=== PATIENT | male | born 1950 | race Caucasian/White ===

== ENCOUNTER → 2016-10-01 | Outpatient (CLI) | payer MEDICARE, BC | END | disposition home or self-care (01) | LOC: LABWHC1 11:14 | PROVIDERS: ATTEND Internal Medicine Endocrinology, Diabetes & Metabolism | DX: C73 Malignant neoplasm of thyroid gland (principal) | CPT/HCPCS: 36415; 84432; 84443; 86800 ==

== ENCOUNTER 2016-10-15 08:41 | Day surgery (SDC) | payer MEDICARE, BC ==
[2016-10-11 17:52] VITALS: BMI 26.0
[~2016-10-15 08:41] MED LIST: LACTATED RINGERS 1,000 ML IV SCH
[2016-10-15 09:02] VITALS: TEMP 98.5
[2016-10-15] MEDS ORDERED: LIDOCAINE 1% 20 ML VIAL (10MG/ML) FOR IV START INTRADERMA ONE (09:06)
[2016-10-15] MEDS ORDERED: LIDOCAINE 1% INJ 10MG/ML (20 ML MDV) ONE (09:12)
[2016-10-15] MEDS ORDERED: PROPOFOL 10 MG/ML 20 ML VIAL IV ONE (09:12)
--- NOTE | 2016-10-15 09:29 | P.PCN ---
Date of Procedure: 10/15/16 Procedure(s) Performed: BRIEF HISTORY: Patient is a 66-year-old pleasant white male, scheduled for an elective colonoscopy as a part of evaluation of prior history of colon polyps. His last colonoscopy was in 5 years ago and has prior history of tubular adenoma. PROCEDURE PERFORMED: Colonoscopy. PREOPERATIVE DIAGNOSIS: History of colon polyps. IV sedation per Anesthesia. PROCEDURE: After informed consent was obtained, the patient, was brought into the endoscopy unit. IV conscious sedation was administered by Anesthesia under continuous monitoring. Distal rectal examination was normal. Initially the Olympus CF-160 flexible video colonoscope was then inserted in the rectum, gradually advanced into the cecum without any difficulty. Careful examination was performed as the scope was gradually being withdrawn. Ileocecal valve and the appendiceal orifice were visualized and appeared normal. Prep was excellent. Mucosa of the cecum, ascending colon, transverse colon, descending colon, sigmoid colon, and rectum appeared normal. Retroflexion was performed in the rectum and no lesions were seen. The patient tolerated the procedure well. IMPRESSION: Normal-appearing colon from rectum to cecum with no evidence of colorectal neoplasia. RECOMMENDATIONS: Findings of this examination were discussed with the patient as well as his family. He was advised to have a repeat surveillance coloscopy in 5 years.
[2016-10-15 10:10] VITALS: BP 125/83; PULSE 70; RESP 16
== END 2016-10-15 10:24 | disposition home or self-care (01) ==
LOC: ORWHC2ENDO 08:41
PROVIDERS: ATTEND Internal Medicine Gastroenterology
DX: Z12.11 Encounter for screening for malignant neoplasm of colon (principal); Z86.010 Personal history of colon polyps; I10 Essential (primary) hypertension; Z87.891 Personal history of nicotine dependence; E07.9 Disorder of thyroid, unspecified; Z79.899 Other long term (current) drug therapy
CPT/HCPCS: J2001; J2704; G0105; 99153

== ENCOUNTER → 2017-05-03 | Outpatient (CLI) | payer MEDICARE, BC ==
[2017-05-03 18:47] LABS: Blood Urea Nitrogen 19 mg/dL (9-20); Non-African American GFR(MDRD) >60 (>60 ml/min/1.73 sqM)
--- NOTE | 2017-05-03 19:56 | CT ---
EXAMINATION TYPE: CT angio chest DATE OF EXAM: 05/03/2017 7:48 PM COMPARISON: 05/06/2016 HISTORY: Follow up scan per patient CT DLP: 823.8 mGycm Automated exposure control for dose reduction was used. CONTRAST: CTA scan of the thorax is performed with IV Contrast, patient injected with 100 mL of Omnipaque 350, pulmonary embolism protocol. There are 3-D post processed images.. FINDINGS: The lungs are clear of consolidation. There is no evidence of a pulmonary mass. There is no pleural e ffusion. There is no pericardial effusion. Heart size is normal. There is aneurysm of the ascending a bony that measures 4.9 cm. There is no sign of dissection. I see no filling defects in the pulmonary arteries. There is no mediastinal adenopathy. There are no hilar masses. There is a 4 cm simple cyst on the anterior right kidney. Bony thorax appears intact. IMPRESSION: 4.9 CM ANEURYSM OF ASCENDING AORTA. THERE IS NO CHANGE COMPARED TO OLD EXAM. NO EVIDENCE OF PULMONARY EMBOLISM. STABLE RIGHT RENAL CORTICAL CYST.
== END | disposition home or self-care (01) ==
LOC: RADCTMAIN 18:06
PROVIDERS: ATTEND Internal Medicine Interventional Cardiology
DX: I71.2 Thoracic aortic aneurysm, without rupture (principal)
CPT/HCPCS: 82565; 84520; 71275; 36415; Q9967

== ENCOUNTER 2017-09-08 08:31 | Day surgery (SDC) | payer MEDICARE, BC ==
[2017-09-06 16:10] VITALS: BMI 26.2
--- NOTE | 2017-09-07 13:57 | HP ---
HISTORY AND PHYSICAL DATE OF SERVICE: 09/08/2017 Ilir Tidwell is a 67-year-old patient seen with progressive left knee pain. We discussed treatment options. He elected to proceed with arthroscopy. Consent was obtained. Medical clearance provided by Dr. Herrera. PAST MEDICAL HISTORY: Hypertension, hypothyroidism. PAST SURGICAL HISTORY: Left knee arthroscopy. DAILY MEDICATIONS: Losartan, Synthroid. ALLERGIES: None reported. SOCIAL HISTORY: Patient denies tobacco use. PHYSICAL EVALUATION: Left knee is range of motion is 0-120 degrees. Mild effusion. Tenderness medial joint line. Tenderness lateral joint line, positive medial Ervin's. Positive lateral Ervin's. Ligaments stable. Hip rotation without pain. Distal neurovascular exam intact left knee Left knee radiographs revealed moderate tricompartmental osteoarthritis. MRI left knee revealed lateral meniscal tear, medial meniscal tear and osteoarthritis. IMPRESSION: Internal derangement, left knee with medial and lateral meniscal tears. PLAN: Left knee arthroscopy with partial meniscectomy and debridement. MMODL / IJN: [id number] /
[~2017-09-08 08:31] MED LIST changes: +DEXAMETHASONE SOD PHOSPHATE 10 MG/ML 1 ML VIAL IV ONE; +ONDANSETRON 4 MG/2 ML VIAL IVP ONE; +ceFAZolin IN SWFI 2 GM/20 ML SYRINGE IVP ONE
[2017-09-08] MEDS ORDERED: BUPIVACAINE (PF) 0.25% 30 ML VIAL INTRAARTIC ONE (09:53)
[2017-09-08] MEDS ORDERED: LIDOCAINE 1% INJ 10MG/ML (20 ML MDV) ONE (09:53)
[2017-09-08] MEDS ORDERED: fentaNYL (PF) 50 MCG/ML 2 ML AMP ONE (09:53)
[2017-09-08] MEDS ORDERED: PROPOFOL 10 MG/ML 20 ML VIAL IV ONE (09:53)
[2017-09-08] MEDS ORDERED: MIDAZOLAM 2 MG/2 ML VIAL IVP ONE (10:18)
[2017-09-08] MEDS ORDERED: fentaNYL (PF) 50 MCG/ML 2 ML AMP IVP ONE (10:18)
[2017-09-08 10:47] VITALS: TEMP 97.7
--- NOTE | 2017-09-08 10:48 | P.OP ---
Date of Procedure: 09/08/17 Preoperative Diagnosis: Internal derangement left knee Postoperative Diagnosis: 1. Tear medial and lateral meniscus left knee 2. Grade 2/3 chondromalacia medial femoral condyle left knee 3. Grade 3/4 chondromalacia lateral femoral condyle left knee 4. Grade 2/3chondromalacia patellofemoral joint left knee 5. Reactive synovitis medial and suprapatellar compartments left knee Procedure(s) Performed: 1. Tear medial and lateral meniscus left knee 2. Grade 2/3 chondromalacia medial femoral condyle left knee 3. Grade 3/4 chondromalacia lateral femoral condyle left knee 4. Grade 2/3 chondromalacia patellofemoral joint left knee 5. Reactive synovitis medial and suprapatellar compartments left knee Anesthesia: GERMANA, local Surgeon: Christian Kat Estimated Blood Loss (ml): 5 Pathology: none sent Condition: stable Disposition: PACU Indications for Procedure: 67-year-old patient seen with progressive left knee pain. After treatment options were discussed, he elected to proceed with arthroscopy. Operative Findings: See description of procedure Description of Procedure: Patient was taken to the operative suite. Patient underwent a general anesthetic by the department of anesthesia. Patient was given preoperative antibiotics. The left lower extremity was placed in a well-padded arthroscopic leg marcos. The left leg was prepped and draped in the normal sterile orthopedic fashion. A lateral parapatellar and suprapatellar incision was made. Trochars were inserted. Arthroscopy was initiated. Suprapatellar pouch revealed diffuse thick reactive synovitis. The patellofemoral joint appeared to articulate congruently. There was grade 2 chondromalacia changes of the patella with osteochondral tears and grade 3 chondromalacia of the femoral sulcus with some osteochondral tears present.. The scope was guided into the medial gutter. No loose bodies or plica were identified. The scope was then guided into the medial compartment. A medial parapatellar incision was made. Trocar inserted followed by probe. There was a radial tear posterior horn medial meniscus. There were grade 2/3 chondromalacia changes of the medial femoral condyle with osteochondral tears present. There was reactive synovitis anteriorly. I performed a partial medial meniscectomy down to stable tissue. I performed a chondroplasty of the medial femoral condyle down to stable tissue. I performed a partial synovectomy. The residual meniscus and osteochondral surface was stable. Scope and probe were then guided into the intercondylar notch. Cruciates were identified, probed and found to be stable. The scope and probe were then guided into lateral compartment. There was a complex tear involving the posterior horn and midbody lateral meniscus. There were grade 3/4 chondromalacia changes of the lateral femoral condyle with some osteochondral tears present. There were grade 4 chondromalacia changes of the tibial plateau. There was a vast areas of bony exposure of the tibial plateau as also bony exposure along the lateral femoral condyle weightbearing surface. I performed a partial lateral meniscectomy down to stable tissue. I performed a chondroplasty of the lateral femoral condyle down to stable tissue. The residual meniscus was stable as was the residual osteochondral surface. The scope was in guided back into the suprapatellar compartment. I introduced a motorized shaver into the suprapatellar compartment. I debrided some piecemeal fragments of meniscus I encountered. I performed a chondroplasty of the patella and femoral sulcus down to stable tissue. I performed a partial synovectomy. Shaver was removed. I took one more look around the entire knee, no residual debris. Instruments were now removed from the joint. The joint was infiltrated with .25% Marcaine. Steri-Strips were applied to the portal sites. Sterile dressings were applied. The patient was placed into a LUCILLE hose. No tourniquet was utilized. The patient was awakened, transferred to a bed and taken to recovery stable satisfactory condition.
[2017-09-08 10:55] VITALS: RESP 16
[2017-09-08] MEDS: HYDROmorphone 0.5 MG/0.5 ML SYRINGE IVP PRN ×2 (11:06→11:12)
[2017-09-08 12:11] VITALS: BP 132/88; PULSE 74
== END 2017-09-08 12:47 | disposition home or self-care (01) ==
LOC: OR 08:31
PROVIDERS: ATTEND Orthopaedic Surgery
DX: S83.242A Other tear of medial meniscus, current injury, left knee, initial encounter (principal); S83.282A Other tear of lateral meniscus, current injury, left knee, initial encounter; X58.XXXA Exposure to other specified factors, initial encounter; M94.262 Chondromalacia, left knee; M65.862 Other synovitis and tenosynovitis, left lower leg; I10 Essential (primary) hypertension; E78.5 Hyperlipidemia, unspecified; E03.9 Hypothyroidism, unspecified; Z85.850 Personal history of malignant neoplasm of thyroid; N40.0 Benign prostatic hyperplasia without lower urinary tract symptoms; I71.2 Thoracic aortic aneurysm, without rupture; Z87.891 Personal history of nicotine dependence; Z79.899 Other long term (current) drug therapy
CPT/HCPCS: 29880; J2250; J1100; J0690; J2001; J3010; J2704; J1170

== ENCOUNTER → 2018-04-17 | Outpatient (CLI) | payer MEDICARE, BC ==
[2018-04-17 09:22] LABS: Basophils # (A) 0.1 k/uL (0-0.2); Basophils % (A) 1 %; Eosinophils # (A) 0.1 k/uL (0-0.7); Eosinophils % (A) 2 %; HCT 45.5 % (39.0-53.0); Lymphocytes # (A) 1.8 k/uL (1.0-4.8); Lymphocytes % (A) 33 %; MCH 29.5 pg (25.0-35.0); MCV 89.3 fL (80.0-100.0); Mean Platelet Volume 7.2; Monocytes # (A) 0.4 k/uL (0-1.0); Monocytes % (A) 8 %; Neutrophils # (A) 2.9 k/uL (1.3-7.7); Neutrophils % (A) 53 %; Platelet Count 253 k/uL (150-450); RBC 5.09 m/uL (4.30-5.90); RDW 13.4 % (11.5-15.5); WBC 5.4 k/uL (3.8-10.6)
[2018-04-17 09:31] LABS: Chloride 105 mmol/L (98-107)
[2018-04-17 09:33] LABS: ALT 43 U/L (21-72); AST 30 U/L (17-59); Albumin 4.8 g/dL (3.5-5.0); Alkaline Phosphatase 78 U/L (38-126); Anion Gap 11 mmol/L; Blood Urea Nitrogen 15 mg/dL (9-20); Calcium 9.8 mg/dL (8.4-10.2); Carbon Dioxide 26 mmol/L (22-30); Cholesterol 179 mg/dL (<200); Glucose 99 mg/dL (74-99); HDL Cholesterol 28 mg/dL (40-60); LDL Cholesterol,Calculated 90 mg/dL (0-99); Sodium 142 mmol/L (137-145); Total Protein 7.4 g/dL (6.3-8.2); Triglycerides 303 mg/dL (<150)
[2018-04-17 09:47] LABS: T4, Free (Free Thyroxine) 1.81 ng/dL (0.78-2.19)
== END | disposition home or self-care (01) ==
LOC: LABWHC1 08:56
PROVIDERS: ATTEND Physician Assistant
DX: I10 Essential (primary) hypertension (principal); N40.0 Benign prostatic hyperplasia without lower urinary tract symptoms
CPT/HCPCS: 36415; 80053; 80061; 84153; 84439; 84443; 85025

== ENCOUNTER → 2018-05-04 | Outpatient (CLI) | payer MEDICARE, BC ==
[2018-05-04 10:38] LABS: Blood Urea Nitrogen 19 mg/dL (9-20)
--- NOTE | 2018-05-04 11:56 | CT ---
EXAMINATION TYPE: CT angio chest DATE OF EXAM: 05/04/2018 COMPARISON: May 03, 2017 HISTORY: aneurysm CT DLP: 406 mGycm CONTRAST: CTA thoracic aorta with 3-D reconstruction is performed and with IV Contrast, patient injected with 1 00mL mL of Isovue 370. Contrast CTA of the thoracic aorta was performed from the lung apex through the upper abdomen. 3D re construction imaging obtained at a separate workstation. CT Chest: THORACIC AORTA: Ascending thoracic aortic aneurysm is stable at 4.9 cm AP dimension versus 4.9 cm pre viously. Mild atheromatous changes seen. There is no evidence for dissection or periaortic collectio n. LUNGS: The lungs are clear and free of infiltrate or atelectasis. No pulmonary nodule or mass is det ected. No pleural effusion or CT evidence of interstitial lung disease. MEDIASTINUM: No evidence for mediastinal hematoma. The heart is not enlarged. No evidence for med iastinal mass or adenopathy. HILAR STRUCTURES: No evidence for mass. No hilar adenopathy is appreciated. OTHER: There is mild hepatic steatosis identified. IMPRESSION- 1. Ascending thoracic aortic aneurysm.
== END | disposition home or self-care (01) ==
LOC: RADCTMAIN 09:59
PROVIDERS: ATTEND Internal Medicine Interventional Cardiology
DX: I71.2 Thoracic aortic aneurysm, without rupture (principal)
CPT/HCPCS: 82565; 84520; 71275; 36415; Q9967

== ENCOUNTER → 2018-08-21 | Outpatient (CLI) | payer MEDICARE, BC | LOC: LABWHC1 08:32 | PROVIDERS: ATTEND Internal Medicine Endocrinology, Diabetes & Metabolism | DX: C73 Malignant neoplasm of thyroid gland (principal) | CPT/HCPCS: 36415; 84443 ==

== ENCOUNTER → 2018-08-24 | Outpatient (CLI) | payer MEDICARE, BC | END | disposition home or self-care (01) | LOC: LABWHC1 11:44 | PROVIDERS: ATTEND Family Medicine | DX: R53.83 Other fatigue (principal) | CPT/HCPCS: 36415; 83002; 84403 ==

== ENCOUNTER → 2019-05-05 | Outpatient (CLI) | payer MEDICARE, BC ==
[2019-05-05 16:45] LABS: African American GFR (CKD) 88.6 (60.0-200.0); Albumin 4.7 g/dL (3.80-4.90); Albumin/Globulin Ratio 2.35 (1.60-3.17); Anion Gap 10.8 mmol/L (4.00-12.00); Calcium 9.2 mg/dL (8.7-10.3); Carbon Dioxide 27.2 mmol/L (21.6-31.8); LDL Cholesterol,Calculated 79.8 mg/dL (0.0-131.0); Potassium 4.5 mmol/L (3.5-5.5); Total Bilirubin 0.9 mg/dL (0.2-1.2); Total Protein 6.7 g/dL (6.2-8.2); VLDL Calculation 52.2 mg/dL (5.00-40.00)
== END | disposition home or self-care (01) ==
LOC: LABWHC1 11:47
PROVIDERS: ATTEND Internal Medicine Interventional Cardiology
DX: C73 Malignant neoplasm of thyroid gland (principal); E78.2 Mixed hyperlipidemia
CPT/HCPCS: 36415; 80053; 80061; 84432; 84443; 86800

== ENCOUNTER → 2019-06-21 | Outpatient (CLI) | payer MEDICARE, BC ==
[2019-06-21 09:05] LABS: African American GFR (CKD) >90 (>60 ml/min/1.73 sqM); Blood Urea Nitrogen 14 mg/dL (9-20)
--- NOTE | 2019-06-21 11:25 | CT ---
EXAMINATION TYPE: CT angio chest DATE OF EXAM: 06/21/2019 COMPARISON: 05/04/2018 HISTORY: 69-year-old male Thoracic aortic aneurysm without rupture. TECHNIQUE: Contiguous axial scanning of the chest performed with IV Contrast, patient injected with 1 00 mL of Isovue 370. Coronal/sagittal MIP reconstructions performed. CT DLP: 841 mGycm Automated exposure control for dose reduction was used. FINDINGS: Heart normal size without pericardial effusion. Extensive coronary vessel calcifications are present. Initial noncontrast images of the aorta show no evidence for acute intramural hematoma. Aortic root aneurysmal at 5.0 cm, unchanged. Ascending aorta aneurysmal and 5.0 cm, unchanged. Conventional arch vessel branching anatomy. Minimal to mild atherosclerotic arch calcifications. Ectatic upper descending thoracic aorta at 3.1 cm, unchanged. Mid descending thoracic aorta ectatic at 3.0 cm. Aorta at the thoracoabdominal junction ectatic at 2.8 cm, unchanged. No evidence for aortic dissection. No thoracic lymphadenopathy. Trace bilateral gynecomastia. Dependent atelectasis posterior lungs. No consolidation or pleural effusion. Cortical cysts within the upper pole of the right kidney measuring 3.7 and 2.7 cm. Low attenuation of the parenchyma. The gallbladder is borderline hydropic at 4.0 cm wide without surrounding inflammati on. Bones: No osseous destructive process. IMPRESSION: 1. ANEURYSMAL AORTIC ROOT AND ASCENDING AORTA MEASURING UP TO 5.0 CM, UNCHANGED. ECTATIC DESCENDING T HORACIC AORTA MEASURING UP TO 3.1 CM, ALSO UNCHANGED. 2. HEPATIC STEATOSIS. 3. MILDLY HYDROPIC GALLBLADDER LIKELY RELATING TO FASTING STATE. IF RIGHT UPPER QUADRANT PAIN OR CONC SH[place] FOR EARLY ACUTE CHOLECYSTITIS, FOLLOW-UP ULTRASOUND OR HIDA SCAN.
== END | disposition home or self-care (01) ==
LOC: RADCTMAIN 08:35
PROVIDERS: ATTEND Internal Medicine Interventional Cardiology
DX: I71.2 Thoracic aortic aneurysm, without rupture (principal)
CPT/HCPCS: 82565; 84520; 71275; 36415; Q9967

== ENCOUNTER → 2020-06-26 | Outpatient (CLI) | payer MEDICARE, BC ==
[2020-06-26 12:03] LABS: African American GFR (CKD) >90 (>60 ml/min/1.73 sqM); Blood Urea Nitrogen 14 mg/dL (9-20); Non-African American GFR(CKD) >90 (>60 ml/min/1.73 sqM)
--- NOTE | 2020-06-26 14:52 | CT ---
EXAMINATION TYPE: CT angio chest DATE OF EXAM: 06/26/2020 COMPARISON: CTA chest June 21, 2019 and older studies HISTORY: follow up known ascending thoracic aneurysm CT DLP: 743.4 mGycm. Automated Exposure Control for Dose Reduction was Utilized. CONTRAST: CTA scan of the thorax is performed without and with IV Contrast, patient injected with 100 mL of Iso antoni 370, pulmonary embolism protocol. 3-D reconstructed Images are created on independent workstation and reviewed. FINDINGS: LUNGS: The lungs are predominantly clear, there is no concerning parenchymal mass or nodule identifie d. Dependent atelectasis bilateral lower lobes There is no pleural effusion or pneumothorax seen. T he tracheobronchial tree is patent. MEDIASTINUM: There is ascending aortic aneurysm measuring up to 5.0 cm in diameter at level of main p ulmonary artery image 25 series 6. No extension into arch or descending aorta. Normal 3 vessel origin from aortic arch. There are no greater than 1 cm hilar or mediastinal lymph nodes. No cardiomegaly or pericardial effusion is seen. Severe three-vessel coronary artery calcification and/or stents. OTHER: Small degree of subareolar bilateral gynecomastia is redemonstrated. Visualized liver is hypod ense consistent with diffuse fatty infiltration. Likely lobulated exophytic thin-walled cyst anterior to the upper pole right kidney redemonstrated. IMPRESSION: Stable ascending aortic aneurysm up to 5.0 cm in diameter.
== END | disposition home or self-care (01) ==
LOC: RADCTMAIN 11:12
PROVIDERS: ATTEND Internal Medicine Interventional Cardiology
DX: I71.2 Thoracic aortic aneurysm, without rupture (principal)
CPT/HCPCS: 82565; 84520; 71275; 36415; Q9967

== ENCOUNTER → 2021-03-27 | Outpatient (CLI) | payer MEDICARE, BC | END | disposition home or self-care (01) ==

== ENCOUNTER → 2022-04-29 | Outpatient (CLI) | payer MEDICARE, BC | END | disposition home or self-care (01) | LOC: LABWHC1 12:26 | PROVIDERS: ATTEND Internal Medicine Endocrinology, Diabetes & Metabolism | DX: C73 Malignant neoplasm of thyroid gland (principal) | CPT/HCPCS: 36415; 84432; 84443; 86800 ==

== ENCOUNTER → 2022-05-06 | Outpatient (CLI) | payer MEDICARE, BC ==
[2022-05-06 08:34] LABS: African American GFR (CKD) >90 (>60 ml/min/1.73 sqM); Blood Urea Nitrogen 20 mg/dL (9-20); Non-African American GFR(CKD) 81 (>60 ml/min/1.73 sqM)
--- NOTE | 2022-05-06 10:10 | CT ---
EXAMINATION TYPE: CT angio chest DATE OF EXAM: 05/06/2022 9:05 AM COMPARISON: 03/27/2021 HISTORY: Thoracic aortic aneurysm CT DLP: 763 mGycm Automated exposure control for dose reduction was used. CONTRAST: CTA scan of the thorax is performed without and with IV Contrast, patient injected with 100 mL of Iso antoni 370, pulmonary embolism protocol. . FINDINGS: Heart normal size without pericardial effusion. LAD and RCA coronary artery calcifications are presen t. Aortic root aneurysmal at 5.5 cm, unchanged. Ascending aorta aneurysmal at 5.3 cm versus 5.2 cm, previously. Proximal arch aneurysmal at 4.7 cm, unchanged. Conventional arterial surrounding anatomy. Minimal atherosclerotic arch calcifications. No evidence for aortic dissection or acute intramural hematoma. Upper descending thoracic aorta ectatic at 3.5 cm versus 3.5 cm, previously. Mid descending thoracic aorta mildly aneurysmal at 3.2 cm versus 3.1 cm, previously. Lower descending thoracic aorta is ectatic at 2.9 cm, unchanged. No thoracic lymphadenopathy by CT si ze criteria. Lungs are clear with no evidence of focal pneumonia, pleural effusion or pneumothorax. Visualized upper abdomen shows prominent lower left perinephric lymph node measuring 1.0 cm, low atte nuation of the hepatic parenchyma suggesting fatty infiltration along with thin anterior calcified gr anuloma. Simple appearing renal cyst on the right suspected Bones: No osseous destructive process. IMPRESSION: 1. Minimal increase in size of the ascending aortic aneurysm measuring measuring 5.3 x 5.2 cm. Aortic root again measures 5.5 cm and is stable. 2. Coronary artery calcifications. 3. Hepatic steatosis
== END | disposition home or self-care (01) ==
LOC: RADCTMAIN 07:52
PROVIDERS: ATTEND Internal Medicine Interventional Cardiology
DX: I71.2 Thoracic aortic aneurysm, without rupture (principal); I25.10 Atherosclerotic heart disease of native coronary artery without angina pectoris; K76.0 Fatty (change of) liver, not elsewhere classified
CPT/HCPCS: 82565; 84520; 71275; 36415; Q9967

== ENCOUNTER → 2022-06-05 | Outpatient (CLI) | payer MEDICARE, BC ==
[2022-06-05 16:04] LABS: ALT 16 U/L (10-49); AST 19 U/L (14-35); African American GFR (CKD) 98.5 (60.0-200.0); Albumin 4.6 g/dL (3.8-4.9); Alkaline Phosphatase 77 U/L (41-126); BUN/Creat Ratio 20.56 Ratio (12.00-20.00); Blood Urea Nitrogen 18.5 mg/dL (9.0-27.0); Calcium 9.5 mg/dL (8.7-10.3); Chloride 104 mmol/L (96-109); Chol/HDL Ratio 5.47 Ratio; Globulin 2.7 g/dL (1.6-3.3); Glucose 101 mg/dL (70-110); Sodium 139 mmol/L (135-145); Total Protein 7.3 g/dL (6.2-8.2)
== END | disposition home or self-care (01) ==
LOC: LABWHC1 11:03
PROVIDERS: ATTEND Internal Medicine Interventional Cardiology
DX: E78.2 Mixed hyperlipidemia (principal)
CPT/HCPCS: 36415; 80053; 80061

== ENCOUNTER → 2022-12-23 | Outpatient (CLI) | payer MEDICARE, BC ==
[2022-12-23 16:04] LABS: ALT 23 U/L (10-49); AST 19 U/L (14-35); Chol/HDL Ratio 5.38 Ratio; LDL Cholesterol,Calculated 77.9 mg/dL (0.0-131.0)
== END | disposition home or self-care (01) ==
LOC: LABWHC1 09:10
PROVIDERS: ATTEND Internal Medicine Interventional Cardiology
DX: E78.2 Mixed hyperlipidemia (principal)
CPT/HCPCS: 36415; 80061; 84450; 84460

== ENCOUNTER → 2023-04-28 | Outpatient (CLI) | payer MEDICARE, BC ==
[2023-04-28 10:35] LABS: African American GFR (CKD) >90 (>60 ml/min/1.73 sqM); Blood Urea Nitrogen 13 mg/dL (9-20); Non-African American GFR(CKD) 89 (>60 ml/min/1.73 sqM)
--- NOTE | 2023-04-28 20:33 | CT ---
EXAMINATION TYPE: CT angio chest DATE OF EXAM: 04/28/2023 COMPARISON: 05/06/2022 HISTORY: Thoracic Aortic Aneurysm, without rupture CT DLP: 815.50 mGycm, Automated exposure control for dose reduction was used. CONTRAST: Performed injected with 100 ml mL of Isovue 300. TECHNIQUE: Axial images were obtained at 5 mm thick sections. Reconstructed images are reviewed on [employer] computer in the coronal plane. FINDINGS: Portion of the thyroid visualized is normal. No suspicious lung nodules or focal infiltrates are present. No enlarged mediastinal or hilar adenopathy is evident. There is a paraesophageal lymph node measur ing 0.8 cm. Series 7 image 124. An additional lymph node measures 0.9 cm posterior to the descending thoracic aorta. No retrocaval adenopathy is identified. The ascending aorta diameter at the level of the main pulmonary artery is 5.6 cm. The main pulmonar y artery diameter at the bifurcation is 3.1 cm. Aortic root is 5.5 cm. Transverse dimension of the ao rtic arch is 3.6 cm. Thoracic descending aorta at the level of the diaphragm is 3.[address] sections are obtained through the upper abdomen. Abdomen is essentially unremarkable. IMPRESSIONS: 1. Aneurysmal dilatation of the ascending thoracic aorta measuring approximately 5.5 cm. This is comp ared to the prior study of 5.3 cm. 2. Couple of small paraesophageal lymph nodes in the lower thoracic region
== END | disposition home or self-care (01) ==
LOC: RADCTMAIN 09:38
PROVIDERS: ATTEND Internal Medicine Interventional Cardiology
DX: I71.20 Thoracic aortic aneurysm, without rupture, unspecified (principal)
CPT/HCPCS: 82565; 84520; 71275; 36415; Q9967

== ENCOUNTER → 2024-02-16 | Outpatient (CLI) | payer MEDICARE, BC ==
[2024-02-16 15:41] LABS: ALT 16 U/L (10-49); AST 17 U/L (14-35); Albumin 4.6 g/dL (3.8-4.9); Alkaline Phosphatase 77 U/L (41-126); Blood Urea Nitrogen 15.3 mg/dL (9.0-27.0); Calcium 9.4 mg/dL (8.7-10.3); Chloride 105 mmol/L (96-109); Glucose 101 mg/dL (70-110); LDL Cholesterol,Calculated 92.2 mg/dL (0.0-131.0); Potassium 4.4 mmol/L (3.5-5.5); Sodium 141 mmol/L (135-145); Total Bilirubin 0.7 mg/dL (0.3-1.2); Total Protein 6.6 g/dL (6.2-8.2)
== END | disposition home or self-care (01) ==
LOC: LABWHC1 08:35
PROVIDERS: ATTEND Internal Medicine Interventional Cardiology
DX: E78.2 Mixed hyperlipidemia (principal)
CPT/HCPCS: 36415; 80053; 80061

== ENCOUNTER → 2024-12-24 | Outpatient (CLI) | payer MEDICARE, BC ==
[2024-12-24 15:14] LABS: ALT 24 U/L (10-49); AST 23 U/L (14-35); Chol/HDL Ratio 5.63 Ratio; LDL Cholesterol,Calculated 100.3 mg/dL (0.0-131.0)
== END | disposition home or self-care (01) ==
LOC: LABWHC1 09:55
PROVIDERS: ATTEND Nurse Practitioner Adult Health
DX: E78.2 Mixed hyperlipidemia (principal)
CPT/HCPCS: 36415; 80061; 84450; 84460

== ENCOUNTER 2025-01-21 01:25 | Observation (INO) | payer OTHER, MEDICARE, BC ==
[2025-01-21 01:33] VITALS: TEMP 97.9
[2025-01-21] MEDS: SODIUM CHLORIDE 0.9% 1,000 ML IV STA (02:22)
[2025-01-21 02:24] LABS: Basophils # (A) 0.07 10*3/uL (0.00-0.10); Basophils % (A) 0.8 %; Eosinophils # (A) 0.14 10*3/uL (0.04-0.35); Eosinophils % (A) 1.7 %; HCT 39.7 % (39.6-50.0); HGB 13.7 g/dL (13.0-17.0); Lymphocytes # (A) 2.33 10*3/uL (0.90-5.00); Lymphocytes % (A) 27.9 %; MCH 30.8 pg (27.0-32.0); MCHC 34.5 g/dL (32.0-37.0); MCV 89.2 fL (80.0-97.0); Mean Platelet Volume 9.7 fL (9.5-12.2); Monocytes # (A) 0.78 10*3/uL (0.20-1.00); Monocytes % (A) 9.3 %; Neutrophils # (A) 5.01 10*3/uL (1.80-7.70); Neutrophils % (A) 60.1 %; Platelet Count 251 10*3/uL (140-440); RBC 4.45 10*6/uL (4.40-5.60); RDW 13.2 % (11.5-14.5); WBC 8.35 10*3/uL (4.50-10.00)
--- NOTE | 2025-01-21 02:29 | ED ---
Abdominal Pain HPI - General Source: patient, RN notes reviewed Mode of arrival: ambulatory Limitations: no limitations - History of Present Illness MD Complaint: abdominal pain Onset/Timin -: week(s) Location: LUQ Radiation: L flank Quality: sharp Consistency: intermittent Worsens With: movement, other (Inspiration) <Germain Coronado - Last Filed: 01/21/25 03:30> - General Source: RN notes reviewed, old records reviewed Mode of arrival: ambulatory Limitations: no limitations <Brennan Canada - Last Filed: 01/23/25 03:08> - General Chief Complaint: Abdominal Pain Stated Complaint: abd pain Time Seen by Provider: 01/21/25 01:42 - History of Present Illness Initial Comments: This is a 74-year-old male with history including TAA, AAA, thyroid CA and pericarditis presenting with for left upper abdominal pain x 3 weeks. Patient states he is experiencing associated dyspnea, dizziness and lightheadedness. States pain worsens with inhalation and movement, described as sharp (4/10). States he is unable to sleep due to the pain. Patient states he is concerned of possible recurrence of pericarditis. Patient also mentions separate left flank pain after bending down for a golf ball about 2 weeks ago, assumed to be rib pain, and that he is not as concerned about. States last chest CTA was performed in June 2024 at a different medical facility with TAA measuring about 5.2 cm at that time. Denies fever, chills, ripping/tearing sensation, chest pain, presyncope, N/V/D. (Germain Coronado) This is a 74 male to ER for evaluation of chest pain chest pain and abdominal pain history of concern for abdominal pain and presented to the ER with abdominal pain severe with concern of abdominal pain here (Brennan Canada) - Related Data Home Medications Medication Instructions Recorded Confirmed Aspirin EC [Ecotrin Low Dose] 81 mg PO DAILY 01/21/25 01/21/25 Colchicine [Colcrys] 0.6 - 1.2 mg PO DIRECTED PRN 01/21/25 01/21/25 Ezetimibe [Zetia] 10 mg PO DAILY 01/21/25 01/21/25 Levothyroxine Sodium [Synthroid] 137 mcg PO DAILY 01/21/25 01/21/25 Loratadine [Claritin] 10 mg PO DAILY 01/21/25 01/21/25 Rosuvastatin Calcium [Crestor] 20 mg PO DAILY 01/21/25 01/21/25 Previous Rx's Medication Instructions Recorded Losartan [Cozaar] 50 mg PO DAILY #0 01/21/25 Pantoprazole Sodium [Protonix] 40 mg PO AC-BRKFST #14 tab 01/21/25 atenoloL [Tenormin] 25 mg PO DAILY #0 01/21/25 Allergies Allergy/AdvReac Type Severity Reaction Status Date / Time No Known Allergies Allergy Verified 01/21/25 09:12 Review of Systems ROS Other: All systems not noted in ROS Statement are negative. <Germain Coronado - Last Filed: 01/21/25 03:30> ROS Other: All systems not noted in ROS Statement are negative. <Brennan Canada - Last Filed: 01/23/25 03:08> ROS Statement: Those systems with pertinent positive or pertinent negative responses have been documented in the HPI. Past Medical History Past Medical History: Cancer, Hypertension, Prostate Disorder, Vascular Disorder Additional Past Medical History / Comment(s): Hx colon polyps and hemorroids. BPH, "heart murmur" and aortic aneursyn. Thyroid CA, pericarditis Jun 2024 History of Any Multi-Drug Resistant Organisms: None Reported Past Surgical History: Orthopedic Surgery Additional Past Surgical History / Comment(s): Mult. colonoscopies. Thyroidectomy. Lt knee scope surg. Past Anesthesia/Blood Transfusion Reactions: No Reported Reaction Past Psychological History: No Psychological Hx Reported Smoking Status: Never smoker Past Alcohol Use History: Occasional Past Drug Use History: None Reported - Past Family History Mother Family Medical History: No Reported History Additional Family Medical History / Comment(s): Family hx unknown per pt. <Germain Coronado - Last Filed: 01/21/25 03:30> General Exam Limitations: no limitations General appearance: alert, in no apparent distress Head exam: Present: atraumatic, normocephalic, normal inspection Eye exam: Present: normal appearance, PERRL, EOMI. Absent: scleral icterus, conjunctival injection, periorbital swelling ENT exam: Present: normal exam, mucous membranes moist Neck exam: Present: normal inspection. Absent: tenderness, meningismus, lymphadenopathy Respiratory exam: Present: normal lung sounds bilaterally. Absent: respiratory distress, wheezes, rales, rhonchi, stridor, chest wall tenderness, accessory muscle use, decreased breath sounds, prolonged expiratory Cardiovascular Exam: Present: regular rate, normal rhythm, normal heart sounds. Absent: systolic murmur, diastolic murmur, rubs, gallop, clicks GI/Abdominal exam: Present: soft, tenderness (Positive LUQ tenderness when palpating deep into diaphragm without guarding), diminished bowel sounds, hypoactive bowel sounds, pulsatile mass (Mid abdominal pulsation noted with deep palpation). Absent: distended, guarding, rebound, rigid, organomegaly, mass, hernia Extremities exam: Present: normal inspection, full ROM, normal capillary refill. Absent: tenderness, pedal edema, joint swelling, calf tenderness Back exam: Present: normal inspection Neurological exam: Present: alert, oriented X3, CN II-XII intact Psychiatric exam: Present: normal affect, normal mood Skin exam: Present: warm, dry, intact, normal color. Absent: rash <Germain Coronado - Last Filed: 01/21/25 03:30> General appearance: alert, in no apparent distress Head exam: Present: atraumatic, normocephalic, normal inspection Eye exam: Present: normal appearance, PERRL, EOMI. Absent: scleral icterus, conjunctival injection, periorbital swelling ENT exam: Present: normal exam, mucous membranes moist Neck exam: Present: normal inspection. Absent: tenderness, meningismus, lymphadenopathy Respiratory exam: Present: normal lung sounds bilaterally. Absent: respiratory distress, wheezes, rales, rhonchi, stridor Cardiovascular Exam: Present: regular rate, normal rhythm, normal heart sounds. Absent: systolic murmur, diastolic murmur, rubs, gallop, clicks GI/Abdominal exam: Present: soft, normal bowel sounds. Absent: distended, tenderness, guarding, rebound, rigid Extremities exam: Present: normal inspection, full ROM, normal capillary refill. Absent: tenderness, pedal edema, joint swelling, calf tenderness Back exam: Present: normal inspection Neurological exam: Present: alert, oriented X3, CN II-XII intact Psychiatric exam: Present: normal affect, normal mood Skin exam: Present: warm, dry, intact, normal color. Absent: rash <Brennan Canada B - Last Filed: 01/23/25 03:08> Course <Brennan Canada - Last Filed: 01/23/25 03:08> Vital Signs 01/21/25 01/21/25 01/21/25 01:26 05:39 08:45 Temperature 97.9 F Pulse Rate 67 67 Respiratory 18 18 17 Rate Blood Pressure 138/84 133/83 O2 Sat by Pulse 97 Oximetry 01/21/25 10:51 Temperature Pulse Rate 72 Respiratory 16 Rate Blood Pressure 139/89 O2 Sat by Pulse 93 L Oximetry - Reevaluation(s) Reevaluation #1: Medical records reviewed (Brennan Canada) Reevaluation #2: Patient's symptoms improved (Brennan Canada) Medical Decision Making - Lab Data Result diagrams: 01/21/25 01:40 01/21/25 01:40 <Germain Coronado - Last Filed: 01/21/25 03:30> - Lab Data Result diagrams: 01/21/25 01:40 01/21/25 01:40 - EKG Data -: EKG Interpreted by Me - Radiology Data Radiology results: report reviewed (CTA chest CT abdomen pelvis ultrasound of the gallbladder negative for acute disease interpreted by me), image reviewed <Brennan Canada - Last Filed: 01/23/25 03:08> - Medical Decision Making Was pt. sent in by a medical professional or institution (Dr. PA, FUNDRAISING ASSISTANT, urgent care, hospital, or prison...) When possible be specific @ -[No] Did you speak to anyone other than the patient for history (EMS, parent, family, police, friend...)? What history was obtained from this source @ - provided a small portion of HPI Did you review nursing and triage notes (agree or disagree)? Why? @ -[I reviewed and agree with nursing and triage notes] Were old charts reviewed (outside hosp., previous admission, EMS record, old EKG, old radiological studies, urgent care reports/EKG's, prison records)? Report findings @ -[No old charts were reviewed] Differential Diagnosis (chest pain, altered mental status, abdominal pain women, abdominal pain men, vaginal bleeding, weakness, fever, dyspnea, syncope, headache, dizziness, GI bleed, back pain, seizure, CVA, palpatations, mental health, musculoskeletal)? @ -Differential Abdominal Pain Men: Appendicitis, cholecystitis, diverticulosis, ischemic bowel, pancreatitis, hepatitis, UTI, gastroenteritis, AAA, incarcerated hernia, bowel obstruction, constipation, inflammatory bowel, hepatitis, peptic ulcer disease, splenic infarction, perforated viscus, testicular torsion, this is not meant to be an all-inclusive list Differential Chest Pain: Stable Angina, Unstable Angina, STEMI, NSTEMI Aortic Dissection, Pneumothorax, Musculoskeletal, Esophageal Spasm GERD, Cholecystitis, Pancreatitis, Zoster, this is not meant to be an all-inclusive list. EKG interpreted by me (3pts min.). @ -Sinus rhythm without ST deviation or T wave inversion. Ventricular rate 63 bpm, QRS 107 ms, QTc 436 ms. X-rays interpreted by me (1pt min.). @ -[None done] CT interpreted by me (1pt min.). @ -[None done] U/S interpreted by me (1pt. min.). @ -[None done] What testing was considered but not performed or refused? (CT, X-rays, U/S, labs)? Why? @ -[None] What meds were considered but not given or refused? Why? @ -[None] Did you discuss the management of the patient with other professionals (professionals i.e. , PA, FUNDRAISING ASSISTANT, lab, RT, psych nurse, hospice social worker, farmworker field crop, teacher, project control officer, assistant case manager)? Give summary @ -[No] Was smoking cessation discussed for >3mins.? @ -[No] Was critical care preformed (if so, how long)? @ -[No] Were there social determinants of health that impacted care today? How? (Homelessness, low income, unemployed, alcoholism, drug addiction, transportation, low edu. Level, literacy, decrease access to med. care, [place] [facility], rehab)? @ -[No] Was there de-escalation of care discussed even if they declined (Discuss DNR or withdrawal of care, Hospice)? DNR status @ -[No] What co-morbidities impacted this encounter? (DM, HTN, Smoking, COPD, CAD, Cancer, CVA, ARF, Chemo, Hep., AIDS, mental health diagnosis, sleep apnea, morbid obesity)? @ -[None] Was patient admitted / discharged? Hospital course, mention meds given and route, prescriptions, significant lab abnormalities, going to OR and other pertinent info. @ -[hospital course] Undiagnosed new problem with uncertain prognosis? @ -[No] Drug Therapy requiring intensive monitoring for toxicity (Heparin, Nitro, Insulin, Cardizem)? @ -[No] Were any procedures done? @ -[No] Diagnosis/symptom? @ -[default] Acute, or Chronic, or Acute on Chronic? @ -Acute Uncomplicated (without systemic symptoms) or Complicated (systemic symptoms)? @ -Complicated Side effects of treatment? @ -[No] Exacerbation, Progression, or Severe Exacerbation? @ -[No] Poses a threat to life or bodily function? How? (Chest pain, [place], [place], pneumonia, PE, COPD, DKA, ARF, appy, cholecystitis, CVA, Diverticulitis, Homicidal, Suicidal, threat to staff... and all critical care pts) @ -[No] (Germain Coronado) 74 male will be admitted for chest pain chest pain and abdominal pain with persistent nausea (Brennan Canada) - Lab Data Lab Results 01/21/25 01/21/25 01/21/25 Range/Units 01:40 01:40 01:40 WBC 8.35 (4.50-10.00) 10*3/uL RBC 4.45 (4.40-5.60) 10*6/uL Hgb 13.7 (13.0-17.0) g/dL Hct 39.7 (39.6-50.0) % MCV 89.2 (80.0-97.0) fL MCH 30.8 (27.0-32.0) pg MCHC 34.5 (32.0-37.0) g/dL Plt Count 251 (140-440) 10*3/uL MPV 9.7 (9.5-12.2) fL Immature Gran % (Auto) 0.2 % Neutrophils % 60.1 % Lymphocytes % 27.9 % Monocytes % 9.3 % Eosinophils % 1.7 % Basophils % 0.8 % Immature Gran # 0.02 (0.00-0.04) 10*3/uL Neutrophils # 5.01 (1.80-7.70) 10*3/uL Lymphocytes # 2.33 (0.90-5.00) 10*3/uL Monocytes # 0.78 (0.20-1.00) 10*3/uL Eosinophils # 0.14 (0.04-0.35) 10*3/uL Basophils # 0.07 (0.00-0.10) 10*3/uL ESR (0-20) mm/Hr PT 11.0 (10.0-12.5) sec INR 1.0 (<1.2) APTT 25.8 (22.0-30.0) sec D-Dimer 0.82 H (<0.60) mg/L FEU Sodium 139 (137-145) mmol/L Potassium 4.2 (3.5-5.1) mmol/L Chloride 102 (98-107) mmol/L Carbon Dioxide 25 (22-30) mmol/L Anion Gap 12 mmol/L BUN 12 (9-20) mg/dL Creatinine 0.71 (0.66-1.25) mg/dL Est GFR (CKD-EPI)AfAm >90 (>60 ml/min/1.73 sqM) Est GFR (CKD-EPI)NonAf >90 (>60 ml/min/1.73 sqM) Glucose 103 H (74-99) mg/dL Plasma Lactic Acid Jack (0.7-2.0) mmol/L Calcium 9.7 (8.4-10.2) mg/dL Total Bilirubin 0.9 (0.2-1.3) mg/dL AST 28 (17-59) U/L ALT 31 (4-49) U/L Alkaline Phosphatase 76 (38-126) U/L Troponin I (0.000-0.034) ng/mL Total Protein 6.9 (6.3-8.2) g/dL Albumin 4.3 (3.5-5.0) g/dL Lipase 115 (23-300) U/L CA 19-9 Antigen (0.0-34.9) U/mL 01/21/25 01/21/25 01/21/25 Range/Units 01:40 01:40 01:40 WBC (4.50-10.00) 10*3/uL RBC (4.40-5.60) 10*6/uL Hgb (13.0-17.0) g/dL Hct (39.6-50.0) % MCV (80.0-97.0) fL MCH (27.0-32.0) pg MCHC (32.0-37.0) g/dL Plt Count (140-440) 10*3/uL MPV (9.5-12.2) fL Immature Gran % (Auto) % Neutrophils % % Lymphocytes % % Monocytes % % Eosinophils % % Basophils % % Immature Gran # (0.00-0.04) 10*3/uL Neutrophils # (1.80-7.70) 10*3/uL Lymphocytes # (0.90-5.00) 10*3/uL Monocytes # (0.20-1.00) 10*3/uL Eosinophils # (0.04-0.35) 10*3/uL Basophils # (0.00-0.10) 10*3/uL ESR (0-20) mm/Hr PT (10.0-12.5) sec INR (<1.2) APTT (22.0-30.0) sec D-Dimer (<0.60) mg/L FEU Sodium (137-145) mmol/L Potassium (3.5-5.1) mmol/L Chloride (98-107) mmol/L Carbon Dioxide (22-30) mmol/L Anion Gap mmol/L BUN (9-20) mg/dL Creatinine (0.66-1.25) mg/dL Est GFR (CKD-EPI)AfAm (>60 ml/min/1.73 sqM) Est GFR (CKD-EPI)NonAf (>60 ml/min/1.73 sqM) Glucose (74-99) mg/dL Plasma Lactic Acid Jack 0.6 L (0.7-2.0) mmol/L Calcium (8.4-10.2) mg/dL Total Bilirubin (0.2-1.3) mg/dL AST (17-59) U/L ALT (4-49) U/L Alkaline Phosphatase (38-126) U/L Troponin I <0.012 (0.000-0.034) ng/mL Total Protein (6.3-8.2) g/dL Albumin (3.5-5.0) g/dL Lipase (23-300) U/L CA 19-9 Antigen 9.1 (0.0-34.9) U/mL 01/21/25 01/21/25 Range/Units 05:23 05:28 WBC (4.50-10.00) 10*3/uL RBC (4.40-5.60) 10*6/uL Hgb (13.0-17.0) g/dL Hct (39.6-50.0) % MCV (80.0-97.0) fL MCH (27.0-32.0) pg MCHC (32.0-37.0) g/dL Plt Count (140-440) 10*3/uL MPV (9.5-12.2) fL Immature Gran % (Auto) % Neutrophils % % Lymphocytes % % Monocytes % % Eosinophils % % Basophils % % Immature Gran # (0.00-0.04) 10*3/uL Neutrophils # (1.80-7.70) 10*3/uL Lymphocytes # (0.90-5.00) 10*3/uL Monocytes # (0.20-1.00) 10*3/uL Eosinophils # (0.04-0.35) 10*3/uL Basophils # (0.00-0.10) 10*3/uL ESR 18 (0-20) mm/Hr PT (10.0-12.5) sec INR (<1.2) APTT (22.0-30.0) sec D-Dimer (<0.60) mg/L FEU Sodium (137-145) mmol/L Potassium (3.5-5.1) mmol/L Chloride (98-107) mmol/L Carbon Dioxide (22-30) mmol/L Anion Gap mmol/L BUN (9-20) mg/dL Creatinine (0.66-1.25) mg/dL Est GFR (CKD-EPI)AfAm (>60 ml/min/1.73 sqM) Est GFR (CKD-EPI)NonAf (>60 ml/min/1.73 sqM) Glucose (74-99) mg/dL Plasma Lactic Acid Jack (0.7-2.0) mmol/L Calcium (8.4-10.2) mg/dL Total Bilirubin (0.2-1.3) mg/dL AST (17-59) U/L ALT (4-49) U/L Alkaline Phosphatase (38-126) U/L Troponin I <0.012 (0.000-0.034) ng/mL Total Protein (6.3-8.2) g/dL Albumin (3.5-5.0) g/dL Lipase (23-300) U/L CA 19-9 Antigen (0.0-34.9) U/mL Disposition <Germain Coronado - Last Filed: 01/21/25 03:30> Is patient prescribed a controlled substance at d/c from ED?: No Time of Disposition: 05:00 <Brennan Canada - Last Filed: 01/23/25 03:08> Clinical Impression: Chest pain Disposition: ADMITTED IP TO THIS HOSP Condition: Fair
[2025-01-21 02:34] LABS: ALT 31 U/L (4-49); AST 28 U/L (17-59); African American GFR (CKD) >90 (>60 ml/min/1.73 sqM); Albumin 4.3 g/dL (3.5-5.0); Alkaline Phosphatase 76 U/L (38-126); Anion Gap 12 mmol/L; Blood Urea Nitrogen 12 mg/dL (9-20); Calcium 9.7 mg/dL (8.4-10.2); Carbon Dioxide 25 mmol/L (22-30); Chloride 102 mmol/L (98-107); Glucose 103 mg/dL (74-99); Lipase 115 U/L (23-300); Non-African American GFR(CKD) >90 (>60 ml/min/1.73 sqM); Potassium 4.2 mmol/L (3.5-5.1); Sodium 139 mmol/L (137-145); Total Bilirubin 0.9 mg/dL (0.2-1.3); Total Protein 6.9 g/dL (6.3-8.2)
[2025-01-21 02:42] LABS: Partial Thromboplastin Time 25.8 sec (22.0-30.0)
--- NOTE | 2025-01-21 04:24 | XR ---
EXAM: XR Chest, 2 Views CLINICAL HISTORY: ITS.REASON XR Reason: LUQ pain TECHNIQUE: Frontal and lateral views of the chest. COMPARISON: No relevant prior studies available. IMPRESSION: 1. Dilated ascending aorta. Consider cross-sectional imaging. 2. Otherwise, no acute cardiopulmonary abnormality.
[2025-01-21] MEDS ORDERED: NALOXONE 0.4 MG/ML 1 ML VIAL IV PRN (05:05)
[2025-01-21] MEDS ORDERED: MORPHINE SULFATE 4 MG/ML SYRINGE IV PRN (05:05)
[2025-01-21] MEDS ORDERED: ONDANSETRON 4 MG/2 ML VIAL IVP PRN (05:05)
--- NOTE | 2025-01-21 05:31 | CT ---
EXAM: CT Angiography Chest With Intravenous Contrast CLINICAL HISTORY: ITS.REASON CT Reason: cp TECHNIQUE: Axial computed tomographic angiography images of the chest with intravenous contrast. CTDI is 15.3 mGy and DLP is 353 mGy-cm. This CT exam was performed using one or more of the following dose reduction techniques: automated exposure control, adjustment of the mA and/or kV according to patient size, and/or use of iterative reconstruction technique. MIP reconstructed images were created and reviewed. COMPARISON: No relevant prior studies available. FINDINGS: Pulmonary arteries: No pulmonary embolism detected. Aorta: Aneurysm within the ascending aorta measuring up to 5.5 cm. Please note this is incompletely evaluated given bolus timing. Lungs: Unremarkable. No mass. No consolidation. Pleural space: Unremarkable. No significant effusion. No pneumothorax. Heart: Cardiomegaly with pericardial effusion measuring up to 7 mm. Severe coronary artery calcifications. No evidence of RV dysfunction. Bones/joints: Degenerative changes in the spine. Chronic right rib fractures. No dislocation. Soft tissues: Gynecomastia. Lymph nodes: Unremarkable. No enlarged lymph nodes. Liver: Calcified granuloma in the liver. Other findings: Mild dependent atelectatic changes. IMPRESSION: 1. No pulmonary embolism detected. 2. Aneurysm within the ascending aorta measuring up to 5.5 cm. Please note this is incompletely evaluated given bolus timing. 3. Severe coronary artery calcifications.
--- NOTE | 2025-01-21 07:06 | CT ---
EXAM: CT Abdomen and Pelvis Without Intravenous Contrast CLINICAL HISTORY: ITS.REASON CT Reason: pain TECHNIQUE: Axial computed tomography images of the abdomen and pelvis without intravenous contrast. CTDI is 8.6 mGy and DLP is 563.7 mGy-cm. This CT exam was performed using one or more of the following dose reduction techniques: automated exposure control, adjustment of the mA and/or kV according to patient size, and/or use of iterative reconstruction technique. COMPARISON: No relevant prior studies available. FINDINGS: Limitations: Limited evaluation in the absence of contrast and excretory phase. Lung bases: Unremarkable. No mass. No consolidation. Heart: Coronary artery calcifications. Cardiomegaly. ABDOMEN: Liver: Unremarkable. Gallbladder and bile ducts: Unremarkable. No calcified stones. No ductal dilation. Pancreas: Unremarkable. No ductal dilation. Spleen: Unremarkable. No splenomegaly. Adrenals: Unremarkable. No mass. Kidneys and ureters: No gross evidence of radiopaque renal calculi or signs of collecting system dilatation. Simple right renal cysts. No follow-up of these simple cysts is necessary. Stomach and bowel: No evidence of bowel obstruction. No mucosal thickening. PELVIS: Appendix: No findings to suggest acute appendicitis. Bladder: Unremarkable. No stones. Reproductive: Prostatic calcifications. ABDOMEN and PELVIS: Intraperitoneal space: Unremarkable. No free air. No significant fluid collection. Bones/joints: Degenerative changes in the spine. No acute fracture. No dislocation. Soft tissues: Bilateral inguinal hernia containing fat. Umbilical hernia containing fat. Vasculature: Infrarenal abdominal aortic aneurysm measuring up to 3.7 cm in luminal cross-sectional diameter. Lymph nodes: Unremarkable. No enlarged lymph nodes. IMPRESSION: 1. Limited evaluation in the absence of contrast and excretory phase. 2. No gross evidence of radiopaque renal calculi or signs of collecting system dilatation. 3. Infrarenal abdominal aortic aneurysm measuring up to 3.7 cm in luminal cross-sectional diameter. 4. No evidence of bowel obstruction. 5. No other acute findings. 6. Incidental findings as described.
--- NOTE | 2025-01-21 07:53 | US ---
EXAMINATION TYPE: US gallbladder DATE OF EXAM: 01/21/2025 COMPARISON: CT same day CLINICAL INDICATION: Male, 74 years old with history of pain TECHNIQUE: Grayscale and color Doppler imaging of the right upper quadrant was performed. 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 Left lobe not seen, scanned through ribs. Overall homogeneous appearance. Gallbladder: fundal region not seen Evidence for sonographic Yarbrough's sign: neg CBD: Upper limits of normal in caliber. Right Kidney: Couple upper pole cysts, largest = 4.5 x 3.7 x 3.5 cm. No hydronephrosis. IMPRESSION: 1. Mild hepatomegaly. The left liver lobe is not adequately visualized by ultrasound due to the need for intercostal scanning. 2. The fundal region of the gallbladder was obscured by bowel gas and could not be visualized. No gal lstones or other abnormality along the visualized portions. No biliary ductal dilatation. 3. Main pancreatic duct appears mildly dilated. Correlate with amylase and lipase levels. Correlate w ith CA-19-9 levels. The exact etiology is unclear at this time. Consider pancreas MRI to further eval uate versus three-month follow-up ultrasound to reassess. [facility], , 01/21/2025 7:51 AM
[2025-01-21 10:54] VITALS: BP 139/89; PULSE 72; RESP 16
--- NOTE | 2025-01-21 11:37 | CA ---
Transthoracic Echo Report Name: Ilir Tidwell Age: 74 Gender: M : 1950 Exam Date: 01/21/2025 09:42 Exam Location: [facility] Ht (in): 72 Wt (lb): 172 Ordering Physician: Brennan Canada DO Attending/Referring Phys: [id number], [employer] Operator Jovany Angeles, HAZEL Procedure CPT: Indications: CP Cardiac Hx: Aortic aneurysm, HTN, cancer Technical Quality: Good Contrast 1: Total Dose (mL): Contrast 2: Total Dose (mL): MEASUREMENTS (Male / Female) Normal Values 2D ECHO LV Diastolic Diameter PLAX 5.2 cm 4.2 - 5.9 / 3.9 - 5.3 cm LV Systolic Diameter PLAX 3.5 cm IVS Diastolic Thickness 1.2 cm 0.6 - 1.0 / 0.6 - 0.9 cm LVPW Diastolic Thickness 1.1 cm 0.6 - 1.0 / 0.6 - 0.9 cm LV Relative Wall Thickness 0.4 LVOT Diameter 2.1 cm Aortic Root Diameter 5.5 cm LA Systolic Diameter LX 3.2 cm 3.0 - 4.0 / 2.7 - 3.8 cm LV Diastolic Volume MOD 4C 116.0 cm??? LV Systolic Volume MOD 4C 53.7 cm??? LV Ejection Fraction MOD 4C 53.7 % LV Diastolic Length 4C 7.7 cm LV Systolic Length 4C 6.9 cm LV Diastolic Volume MOD 2C 125.7 cm??? LV Systolic Volume MOD 2C 56.6 cm??? LV Ejection Fraction MOD 2C 55.0 % LV Diastolic Length 2C 7.8 cm LV Systolic Length 2C 6.5 cm LA Volume 36.7 cm??? 18 - 58 / 22 - 52 cm??? LA Volume Index 18.4 cm???/m??? 16 - 28 cm???/m??? DOPPLER AI Peak Velocity 442.6 cm/s AI Peak Gradient 78.4 mmHg AI Pressure Half Time 469.8 ms MV Area PHT 3.5 cm??? Mitral E Point Velocity 85.2 cm/s Mitral A Point Velocity 72.8 cm/s Mitral E to A Ratio 1.2 MV Deceleration Time 215.8 ms TR Peak Velocity 205.5 cm/s TR Peak Gradient 16.9 mmHg Right Atrial Pressure 5.0 mmHg Pulmonary Artery Systolic Pressu 21.9 mmHg Right Ventricular Systolic Press 21.9 mmHg FINDINGS Left Ventricle Left ventricular ejection fraction is estimated at 55-60 %. Mildly increased septal wall thickness. Normal left ventricular systolic function with no obvious regional wall motion abnormalities. Right Ventricle Normal right ventricular size and function. Right ventricular systolic pressure within normal limits. Right Atrium Mild right atrial dilatation. Left Atrium Normal left atrial size. Mitral Valve Mitral annular calcification. No mitral stenosis. Mild mitral regurgitation. Aortic Valve Trileaflet aortic valve. Aortic valve sclerosis. No aortic stenosis. Moderate aortic regurgitation. Tricuspid Valve Structurally normal tricuspid valve. No tricuspid stenosis. Trace tricuspid regurgitation. Pulmonic Valve Structurally normal pulmonic valve. No pulmonic stenos. Trace pulmonic regurgitation. Pericardium No pericardial effusion. Aorta Severe aortic dilatation at the level of the sinuses of valsalva (root). Severely dilated proximal ascending aorta (tube). CONCLUSIONS Normal LV size and systolic function. Mild biatrial enlargement, enlarged aortic root at 5.5 cm. Aortic valve appears to be trileaflet but not very well-seen. Moderate aortic regurgitation. Mild mitral and tricuspid regurgitation no pulmonary hypertension. No pericardial effusion Previewed by: Dr. Shaylee Rubio MD (Electronically Signed) Final Date: 21 Jan 2025 11:36
[2025-01-21] MEDS: ASPIRIN 81 MG PO SCH (12:02)
[2025-01-21] MEDS: LEVOTHYROXINE 137 MCG TAB PO SCH (12:02)
[2025-01-21] MEDS: PANTOPRAZOLE 40 MG/10 ML VIAL IVP SCH (12:02)
--- NOTE | 2025-01-21 12:07 | P.HPIM ---
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 Ultrasound of the abdomen is within normal limits. Patient denied any significant weight loss. Patient pain significantly improved. Patient does have history of abdominal aortic aneurysm and thoracic arctic aneurysm and thyroid cancer status post thyroidectomy on levothyroxine supplementation and had history of pericarditis in the past. Cardiology was consulted from ER to rule out acute coronary syndromes although patient's troponins are not elevated EKG is not consistent with acute ischemia patient had an echocardiogram which did not show any wall motion abnormalities. REVIEW OF SYSTEMS: All other systems are negative except those mentioned in the HPI PHYSICAL EXAMINATION: GENERAL: The patient is alert and oriented x3, not in any acute distress. Well developed, well nourished. HEENT: Pupils are round and equally reacting to light. EOMI. No scleral icterus. No conjunctival pallor. Normocephalic, atraumatic. No pharyngeal erythema. No thyromegaly. CARDIOVASCULAR: S1 and S2 present. No murmurs, rubs, or gallops. PULMONARY: Chest is clear to auscultation, no wheezing or crackles. ABDOMEN: Soft, nontender, nondistended, normoactive bowel sounds. No palpable organomegaly. MUSCULOSKELETAL: No joint swelling or deformity. EXTREMITIES: No cyanosis, clubbing, or pedal edema. NEUROLOGICAL: Gross neurological examination did not reveal any focal deficits. SKIN: No rashes. Assessment and plan -Abdominal pain probably secondary to peptic ulcer disease patient will be given Protonix here will be discharged on Protonix for 14 days after Protonix if patient is able to tolerate diet patient will be discharged today. If patient continues to have symptoms of pain consider upper GI endoscopy as an outpatient - Rule out acute coronary syndromes, cardiology cleared for discharge today recommending increasing dose of losartan and atenolol although patient had a history of low blood pressures because of which his losartan dose was recently decreased from 100 mg to 25 mg. Patient will be discharged on increased dose of losartan. Patient was asked to check the blood pressure closely at home and if he is getting lightheaded patient will go back on his original dose of 25 mg. - Abdominal aortic aneurysm: Cardiology is recommending stricter control of blood pressure for that reason - CT incidental finding of dilated pancreatic duct. Obtaining CA 19-9 levels need to be followed in primary care's office. Might need a pancreatic MRI as an outpatient Hypothyroidism from thyroidectomy - Prevascular disease benign prostatic hypertrophy Patient will be discharged today if he is able to tolerate diet after Protonix : Past Medical History Past Medical History: Cancer, Hypertension, Prostate Disorder, Vascular Disorder Additional Past Medical History / Comment(s): Hx colon polyps and hemorroids. BPH, "heart murmur" and aortic aneursyn. Thyroid CA, pericarditis Jun 2024 History of Any Multi-Drug Resistant Organisms: None Reported Past Surgical History: Orthopedic Surgery Additional Past Surgical History / Comment(s): Mult. colonoscopies. Thy roidectomy. Lt knee scope surg. Past Anesthesia/Blood Transfusion Reactions: No Reported Reaction Past Psychological History: No Psychological Hx Reported Smoking Status: Never smoker Past Alcohol Use History: Occasional Past Drug Use History: None Reported - Past Family History Mother Family Medical History: No Reported History Additional Family Medical History / Comment(s): Family hx unknown per pt. Medications and Allergies Home Medications Medication Instructions Recorded Confirmed Type Aspirin EC [Ecotrin Low Dose] 81 mg PO DAILY 01/21/25 01/21/25 History Colchicine [Colcrys] 0.6 - 1.2 mg PO DIRECTED PRN 01/21/25 01/21/25 History Ezetimibe [Zetia] 10 mg PO DAILY 01/21/25 01/21/25 History Levothyroxine Sodium [Synthroid] 137 mcg PO DAILY 01/21/25 01/21/25 History Loratadine [Claritin] 10 mg PO DAILY 01/21/25 01/21/25 History Losartan [Cozaar] 50 mg PO DAILY #0 01/21/25 01/21/25 Rx Rosuvastatin Calcium [Crestor] 20 mg PO DAILY 01/21/25 01/21/25 History atenoloL [Tenormin] 25 mg PO DAILY #0 01/21/25 01/21/25 Rx Allergies Allergy/AdvReac Type Severity Reaction Status Date / Time No Known Allergies Allergy Verified 01/21/25 09:12 Physical Exam Vitals: Vital Signs Temp Pulse Resp BP Pulse Ox 01/21/25 10:51 72 16 139/89 93 L 01/21/25 08:45 17 01/21/25 05:39 67 18 133/83 01/21/25 01:26 97.9 F 67 18 138/84 97 Intake and Output 01/20/25 01/21/25 01/21/25 22:59 06:59 14:59 Other: Weight 78.018 kg Results CBC & Chem 7: 01/21/25 01:40 01/21/25 01:40 Labs: Abnormal Lab Results - Last 24 Hours (Table) 01/21/25 01/21/25 01/21/25 Range/Units 01:40 01:40 01:40 D-Dimer 0.82 H (<0.60) mg/L FEU Glucose 103 H (74-99) mg/dL Plasma Lactic Acid Jack 0.6 L (0.7-2.0) mmol/L
--- NOTE | 2025-01-21 12:10 | P.DS ---
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 Ultrasound of the abdomen is within normal limits. Patient denied any significant weight loss. Patient pain significantly improved. Patient does have history of abdominal aortic aneurysm and thoracic arctic aneurysm and thyroid cancer status post thyroidectomy on levothyroxine supplementation and had history of pericarditis in the past. Cardiology was consulted from ER to rule out acute coronary syndromes although patient's troponins are not elevated EKG is not consistent with acute ischemia patient had an echocardiogram which did not show any wall motion abnormalities. REVIEW OF SYSTEMS: All other systems are negative except those mentioned in the HPI PHYSICAL EXAMINATION: GENERAL: The patient is alert and oriented x3, not in any acute distress. Well developed, well nourished. HEENT: Pupils are round and equally reacting to light. EOMI. No scleral icterus. No conjunctival pallor. Normocephalic, atraumatic. No pharyngeal erythema. No thyromegaly. CARDIOVASCULAR: S1 and S2 present. No murmurs, rubs, or gallops. PULMONARY: Chest is clear to auscultation, no wheezing or crackles. ABDOMEN: Soft, nontender, nondistended, normoactive bowel sounds. No palpable organomegaly. MUSCULOSKELETAL: No joint swelling or deformity. EXTREMITIES: No cyanosis, clubbing, or pedal edema. NEUROLOGICAL: Gross neurological examination did not reveal any focal deficits. SKIN: No rashes. Assessment and plan -Abdominal pain probably secondary to peptic ulcer disease patient will be given Protonix here will be discharged on Protonix for 14 days after Protonix if patient is able to tolerate diet patient will be discharged today - Rule out acute coronary syndromes, cardiology cleared for discharge today recommending increasing dose of losartan and atenolol although patient had a history of low blood pressures because of which his losartan dose was recently decreased from 100 mg to 25 mg. Patient will be discharged on increased dose of losartan. Patient was asked to check the blood pressure closely at home and if he is getting lightheaded patient will go back on his original dose of 25 mg. - Abdominal aortic aneurysm: Cardiology is recommending stricter control of blood pressure for that reason - CT incidental finding of dilated pancreatic duct. Obtaining CA 19-9 levels need to be followed in primary care's office. Might need a pancreatic MRI as an outpatient Hypothyroidism from thyroidectomy - Prevascular disease benign prostatic hypertrophy Patient will be discharged today if he is able to tolerate diet after Protonix : Patient Condition at Discharge: Fair Plan - Discharge Summary New Discharge Prescriptions: New Pantoprazole Sodium [Protonix] 40 mg [facility] Continue Loratadine [Claritin] 10 mg PO DAILY Colchicine [Colcrys] 0.6 - 1.2 mg PO DIRECTED PRN PRN Reason: GOUT Levothyroxine Sodium [Synthroid] 137 mcg PO DAILY Ezetimibe [Zetia] 10 mg PO DAILY Aspirin EC [Ecotrin Low Dose] 81 mg PO DAILY Rosuvastatin Calcium [Crestor] 20 mg PO DAILY atenoloL [Tenormin] 25 mg PO DAILY #0 Changed Losartan [Cozaar] 50 mg PO DAILY #0 Discharge Medication List Aspirin EC [Ecotrin Low Dose] 81 mg PO DAILY 01/21/25 [History] Colchicine [Colcrys] 0.6 - 1.2 mg PO DIRECTED PRN 01/21/25 [History] Ezetimibe [Zetia] 10 mg PO DAILY 01/21/25 [History] Levothyroxine Sodium [Synthroid] 137 mcg PO DAILY 01/21/25 [History] Loratadine [Claritin] 10 mg PO DAILY 01/21/25 [History] Losartan [Cozaar] 50 mg PO DAILY #0 01/21/25 [Rx] Pantoprazole Sodium [Protonix] 40 mg PO [facility] #14 tab 01/21/25 [Rx] Rosuvastatin Calcium [Crestor] 20 mg PO DAILY 01/21/25 [History] atenoloL [Tenormin] 25 mg PO DAILY #0 01/21/25 [Rx] Follow up Appointment(s)/Referral(s): Sp Herrera DO [Primary Care Provider] - 3 Days Reva Mendez MD [STAFF PHYSICIAN] - 1 Week Discharge Disposition: HOME SELF-CARE
--- NOTE | 2025-01-21 12:25 | P.CRDCN ---
History of Present Illness History of present illness: HISTORY OF PRESENTING ILLNESS This is a pleasant 74-year-old male past medical history significant for ascending aortic aneurysm, hypertension, valvular heart disease and dyslipidemia. He follows in the office with Dr. Henderson. We have been asked to see in consultation for chest pain. He presented to the hospital with a 3-week history of left upper quadrant abdominal pain. It initially started related to eating greasy food while on vacation but has consistently persisted and gotten worse. He denies any chest pain or pressure. Breathing is stable. No dizziness or palpitations. EKG reveals sinus rhythm heart rate of [address] or T wave abnormalities. D-dimer was elevated prompting a CT of the chest which revealed a stable 5.5 cm ascending aortic aneurysm compared to CT of 2022 no significant change. He also has a dilated pancreatic duct. Laboratory data reviewed, CBC unremarkable, D-dimer 0.82, creatinine 0.71, potassium 4.2 and cardiac enzymes negative x 2. Current daily cardiac medications include aspirin 81 mg daily, losartan 25 mg daily, atenolol 25 mg daily, Crestor 20 mg daily and Zetia 10 mg daily. Echocardiogram reveals preserved LV systolic function with ejection fraction 55 to 60%, moderate aortic regurgitation, mild mitral regurgitation and trace tricuspid regurgitation with severely dilated proximal ascending aorta. Aortic root measures 5.5 cm. REVIEW OF SYSTEMS At the time of my exam: CONSTITUTIONAL: Denies fever or chills. CARDIOVASCULAR: Denies chest pain, shortness of breath, orthopnea, PND or palpitations. RESPIRATORY: Denies cough. GASTROINTESTINAL: Complains of left upper quadrant abdominal pain, denies diarrhea, constipation, nausea or vomiting. MUSCULOSKELETAL: Denies myalgias. NEUROLOGIC: Denies numbness, tingling, headache or weakness. ENDOCRINE: Denies fatigue, weight change, polydipsia or polyurina. GENITOURINARY: Denies burning, hematuria or urgency with micturation. HEMATOLOGIC: Denies history of anemia or bleeding. PHYSICAL EXAMINATION Blood pressure 139/89 heart rate 72 afebrile and maintaining oxygen saturation on room air. CONSTITUTIONAL: No apparent distress. HEENT: Head is normocephalic. Pupils are equal, round. Sclerae anicteric. Mucous membranes of the mouth are moist. No JVD. No carotid bruit. CHEST EXAMINATION: Lungs are clear to auscultation. No chest wall tenderness is noted on palpation or with deep breathing. HEART EXAMINATION: Regular rate and rhythm. S1, S2 heard. Systolic ejection murmur at the base. ABDOMEN: Soft, nontender. EXTREMITIES: 2+ peripheral pulses, no lower extremity edema and no calf tenderness. NEUROLOGIC EXAMINATION: Patient is awake, alert and oriented x3. ASSESSMENT Abdominal pain, atypical for angina Hypertension Dyslipidemia Ascending aortic aneurysm, stable Aortic regurgitation PLAN An acute coronary event has been ruled out. Increase losartan to 50 mg daily and atenolol to 25 mg BID for better BP control closer to 110 systolic. Stable from cardiac perspective. Follow up with Dr. Henderson upon discharge. Thank you kindly for this consultation. Nurse Practitioner note has been reviewed, I agree with a documented findings an d plan of care. Patient was seen and examined. Past Medical History Past Medical History: Cancer, Hypertension, Prostate Disorder, Vascular Disorder Additional Past Medical History / Comment(s): Hx colon polyps and hemorroids. BPH, "heart murmur" and aortic aneursyn. Thyroid CA, pericarditis Jun 2024 History of Any Multi-Drug Resistant Organisms: None Reported Past Surgical History: Orthopedic Surgery Additional Past Surgical History / Comment(s): Mult. colonoscopies. Thyroidectomy. Lt knee scope surg. Past Anesthesia/Blood Transfusion Reactions: No Reported Reaction Past Psychological History: No Psychological Hx Reported Smoking Status: Never smoker Past Alcohol Use History: Occasional Past Drug Use History: None Reported - Past Family History Mother Family Medical History: No Reported History Additional Family Medical History / Comment(s): Family hx unknown per pt. Medications and Allergies Home Medications Medication Instructions Recorded Confirmed Type Aspirin EC [Ecotrin Low Dose] 81 mg PO DAILY 01/21/25 01/21/25 History Colchicine [Colcrys] 0.6 - 1.2 mg PO DIRECTED PRN 01/21/25 01/21/25 History Ezetimibe [Zetia] 10 mg PO DAILY 01/21/25 01/21/25 History Levothyroxine Sodium [Synthroid] 137 mcg PO DAILY 01/21/25 01/21/25 History Loratadine [Claritin] 10 mg PO DAILY 01/21/25 01/21/25 History Losartan [Cozaar] 50 mg PO DAILY #0 01/21/25 01/21/25 Rx Pantoprazole Sodium [Protonix] 40 mg PO -[facility] #14 tab 01/21/25 Rx Rosuvastatin Calcium [Crestor] 20 mg PO DAILY 01/21/25 01/21/25 History atenoloL [Tenormin] 25 mg PO DAILY #0 01/21/25 01/21/25 Rx Allergies Allergy/AdvReac Type Severity Reaction Status Date / Time No Known Allergies Allergy Verified 01/21/25 09:12 Physical Exam Vitals: Vital Signs Temp Pulse Resp BP Pulse Ox 01/21/25 10:51 72 16 139/89 93 L 01/21/25 08:45 17 01/21/25 05:39 67 18 133/83 01/21/25 01:26 97.9 F 67 18 138/84 97 Intake and Output 01/20/25 01/21/25 01/21/25 22:59 06:59 14:59 Other: Weight 78.018 kg Results 01/21/25 01:40 01/21/25 01:40 Cardiac Enzymes 01/21/25 01/21/25 01/21/25 Range/Units 01:40 01:40 05:28 AST 28 (17-59) U/L Troponin I <0.012 <0.012 (0.000-0.034) ng/mL Coagulation 01/21/25 Range/Units 01:40 PT 11.0 (10.0-12.5) sec APTT 25.8 (22.0-30.0) sec CBC 01/21/25 Range/Units 01:40 WBC 8.35 (4.50-10.00) 10*3/uL RBC 4.45 (4.40-5.60) 10*6/uL Hgb 13.7 (13.0-17.0) g/dL Hct 39.7 (39.6-50.0) % Plt Count 251 (140-440) 10*3/uL Comprehensive Metabolic Panel 01/21/25 Range/Units 01:40 Sodium 139 (137-145) mmol/L Potassium 4.2 (3.5-5.1) mmol/L Chloride 102 (98-107) mmol/L Carbon Dioxide 25 (22-30) mmol/L BUN 12 (9-20) mg/dL Creatinine 0.71 (0.66-1.25) mg/dL Glucose 103 H (74-99) mg/dL Calcium 9.7 (8.4-10.2) mg/dL AST 28 (17-59) U/L ALT 31 (4-49) U/L Alkaline Phosphatase 76 (38-126) U/L Total Protein 6.9 (6.3-8.2) g/dL Albumin 4.3 (3.5-5.0) g/dL Intake and Output 01/20/25 01/21/25 01/21/25 22:59 06:59 14:59 Other: Weight 78.018 kg 01/21/25 01:40 01/21/25 01:40
[2025-01-21] MEDS ORDERED: atenoloL 25 MG TAB PO SCH (21:00)
[2025-01-22] MEDS ORDERED: atenoloL 25 MG TAB PO SCH (09:00)
[2025-01-22] MEDS ORDERED: ATORVASTATIN 40 MG TAB PO SCH (09:00)
[2025-01-22] MEDS ORDERED: LOSARTAN 25 MG TAB PO SCH (09:00)
[2025-01-22] MEDS ORDERED: LOSARTAN 50 MG TAB PO SCH (09:00)
[2025-01-22] MEDS ORDERED: LORATADINE 10 MG TAB PO SCH (09:00)
[2025-01-22] MEDS ORDERED: EZETIMIBE 10 MG TAB PO SCH (09:00)
== END 2025-01-21 13:16 | disposition home or self-care (01) ==
LOC: EC 01:25 → UNDOADMOB 05:06 → 6NMEDSUR 05:06 → 5NMEDONC 08:58 → 1SOBS 09:05
PROVIDERS: ADMIT Internal Medicine; ATTEND Internal Medicine
DX: R10.12 Left upper quadrant pain (principal); I10 Essential (primary) hypertension; N40.0 Benign prostatic hyperplasia without lower urinary tract symptoms; E89.0 Postprocedural hypothyroidism; E78.5 Hyperlipidemia, unspecified; I71.21 Aneurysm of the ascending aorta, without rupture; I71.40 Abdominal aortic aneurysm, without rupture, unspecified; I35.1 Nonrheumatic aortic (valve) insufficiency; Z85.850 Personal history of malignant neoplasm of thyroid; Z79.82 Long term (current) use of aspirin; Z79.890 Hormone replacement therapy; Z79.899 Other long term (current) drug therapy
CPT/HCPCS: 96374; 99285; 36415; 93005; 93306; 85379; 80053; 85652; 83605; 83690; 84484; 85025; 85610; 85730; 86301; 71046; 76705; 71275; 74176; G0378; Q9967; J2470